=== PATIENT | male | born 1960 | race Caucasian/White ===

== ENCOUNTER → 2021-04-27 13:55 | Outpatient (BNVA) | payer BC, SELFPAY | PROVIDERS: Family Provider Family Medicine; PCP Family Medicine; Visit Provider Specialist | DX: R25.2 Cramp and spasm (principal); R53.83 Other fatigue; R20.0 Anesthesia of skin; R20.2 Paresthesia of skin; Z87.81 Personal history of (healed) traumatic fracture | CPT/HCPCS: 99204; 99205 ==

== ENCOUNTER 2021-04-27 16:22 | Outpatient (CLI) | payer BC, SELFPAY ==
[2021-04-27 17:20] LABS: Creatine Phosphokinase 96 U/L (39-308)
[2021-04-27 18:11] LABS: Erythrocyte Sedimentation Rate 11 mm/hr (0-10)
[2021-05-01 13:03] LABS: COMPLEMENT COMPONENT C3C 106 mg/dL (82-185); COMPLEMENT COMPONENT C4C 15 mg/dL (15-53); COMPLEMENT, TOTAL (CH50) 39 U/mL (31-60)
[2021-05-01 13:38] LABS: Cyclic Citrullinated Peptide <16 UNITS
[2021-05-01 15:53] LABS: CENTROMERE B ANTIBODY <1.0 NEG AI (<1.0 NEG); JO-1 ANTIBODY <1.0 NEG AI (<1.0 NEG); RNP ANTIBODY <1.0 NEG AI (<1.0 NEG); SCL-70 ANTIBODY <1.0 NEG AI (<1.0 NEG); SJOGREN'S ANTIBODY (SS-A) <1.0 NEG AI (<1.0 NEG); SM ANTIBODY <1.0 NEG AI (<1.0 NEG); SS-B <1.0 NEG AI (<1.0 NEG)
[2021-05-01 16:58] LABS: THYROID PEROXIDASE ANTIBODIES 1 IU/mL (<9)
[2021-05-03 08:38] LABS: ANA PATTERN Nuclear, Speckled; ANA SCREEN, IFA POSITIVE (NEGATIVE)
[2021-05-06 00:02] LABS: DNA AB (DS) CRITHIDIA,IFA NEGATIVE (NEGATIVE)
== END 2021-04-27 16:23 | disposition home or self-care (01) ==
PROVIDERS: PCP Family Medicine; Visit Provider Specialist
DX: R25.2 Cramp and spasm (principal); R20.0 Anesthesia of skin; R20.2 Paresthesia of skin
CPT/HCPCS: 36415; 82550; 85651; 86160; 86162; 86235; 86255; 86376; 86431

== ENCOUNTER 2021-05-25 11:45 | Outpatient (CLI) | payer BC, SELFPAY ==
--- NOTE | 2021-05-25 11:30 | MR_ITS ---
WS: [id number] MRI CERVICAL SPINE NONCONTRAST TECHNIQUE: Sagittal T1, T2 and STIR imaging. Axial T2, gradient, and fiesta imaging. CLINICAL INFORMATION: Z87.81 - Personal history of (healed) traumatic fracture COMPARISON: None. FINDINGS: Straightening with slight reversal normal cervical lordosis. Mild spondylitic changes. Cord signal is normal. C2-C3: Mild disc osteophytic ridging. Mild facet arthropathy. Spinal canal and foramen are patent. C3-C4: Mild disc osteophyte complex with endplate ridging. Mild to moderate central canal stenosis wi th slight indentation on the cervical cord. Severe left and mild to moderate right bony foraminal rg rowing. Mild facet arthropathy. C4-C5: Disc osteophyte complex with endplate ridging eccentric to the right. Moderate central canal s tenosis and slight indentation on cervical cord. Moderate to severe right and mild left bony foramina l narrowing. Mild facet arthropathy. C5-C6: Disc osteophyte complex eccentric to the left with a left pericentral protrusion. Indentation left ventral cervical cord with moderate central canal stenosis. Mild flattening of the cervical cord . Moderate to severe left and mild to moderate right bony foraminal narrowing. Moderate facet arthrop athy. C6-C7: Shallow central disc protrusion with mild central canal stenosis. Mild left and no significant right foraminal narrowing. Mild facet arthropathy. C7-T1: Normal. T2 hyperintense right thyroid nodule measuring 11 mm. Visualized brain stem structures: Normal. Prevertebral soft tissues: Normal. MR/MR cervical spin wo con* [id number] IMPRESSION: 1. Straightening with slight reversal of the normal cervical lordosis. Moderat e spondylitic changes. 2. Mild to moderate central canal stenosis C3-C4. Moderate central canal steno sis C4-C5 and C5-C6 with slight indentation on the cervical cord. 3. Left pericentral disc osteophyte protrusion C5-6 with slight indentation an d flattening of the cervical cord. Moderate central canal stenosis. 4. Moderate to severe bony foraminal narrowing worse at left C3-C4, right C4-5 , left C5-C6. 5. T2 hyperintense right thyroid nodule measuring 11 mm. This can be followed up with ultrasound on an elective basis.
== END 2021-05-25 11:46 | disposition home or self-care (01) ==
PROVIDERS: PCP Family Medicine; Visit Provider Specialist
DX: Z87.81 Personal history of (healed) traumatic fracture (principal); E04.1 Nontoxic single thyroid nodule; M25.78 Osteophyte, vertebrae; M48.02 Spinal stenosis, cervical region
CPT/HCPCS: 72141

== ENCOUNTER → 2021-05-29 14:42 | Outpatient (BNVA) | payer BC, SELFPAY | PROVIDERS: PCP Family Medicine; Visit Provider Specialist | DX: R25.2 Cramp and spasm (principal); M50.90 Cervical disc disorder, unspecified, unspecified cervical region; M48.02 Spinal stenosis, cervical region; G43.711 Chronic migraine without aura, intractable, with status migrainosus; M19.90 Unspecified osteoarthritis, unspecified site; R53.83 Other fatigue | CPT/HCPCS: 99215 ==

== ENCOUNTER → 2021-06-22 09:13 | Outpatient (BNVA) | payer BC, SELFPAY | PROVIDERS: PCP Family Medicine; Referring Provider Specialist; Visit Provider Orthopaedic Surgery | DX: R76.8 Other specified abnormal immunological findings in serum (principal); R53.83 Other fatigue; Z11.59 Encounter for screening for other viral diseases; R25.2 Cramp and spasm; M50.90 Cervical disc disorder, unspecified, unspecified cervical region; M48.02 Spinal stenosis, cervical region | CPT/HCPCS: 72050; 99204 ==

== ENCOUNTER → 2021-06-30 09:41 | Outpatient (BNVA) | payer BC, SELFPAY | PROVIDERS: PCP Nurse Practitioner; Referring Provider Orthopaedic Surgery; Visit Provider Anesthesiology Pain Medicine | DX: M54.2 Cervicalgia (principal); M79.603 Pain in arm, unspecified | CPT/HCPCS: 99204 ==

== ENCOUNTER 2021-07-07 12:02 | Outpatient (CLI) | payer BC, SELFPAY ==
--- NOTE | 2021-07-07 12:25 | XR_ITS ---
WS: [id number] Left hand, 2 views, 07/07/2021 Clinical Data: R53.83 - Other fatigue Comparison: None. Findings: No new fractures or dislocations are seen. The soft tissues are unremarkable. The joint spaces are no rmal There is deformity of the distal left ulna from an old injury. XR/XR hand LT 2V [id number] Impression: Negative left hand.
--- NOTE | 2021-07-07 12:25 | XR_ITS ---
WS: [id number] Sacroiliac joints, 3 views, 07/07/2021 Clinical Data: L40.9 - Psoriasis, unspecified Comparison: None. Findings: The SI joints are normal in width. No erosion, sclerosis or destruction is seen. There are no fractur es or dislocations. The adjacent visualized pelvis and hips are unremarkable. XR/XR sacroiliac jts m 3V [id number] Impression: Negative SI joints.
--- NOTE | 2021-07-07 12:25 | XR_ITS ---
WS: [id number] Left foot, 2 views, 07/07/2021 Clinical Data: M25.50 - Pain in unspecified joint Comparison: None. Findings: No fractures or dislocations are seen. No bone destruction or erosion is noted. There is minimal oste oarthritis of the left first MTP joint. 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
--- NOTE | 2021-07-07 12:25 | XR_ITS ---
WS: [id number] Right hand, 2 views, 07/07/2021 Clinical Data: R53.83 - Other fatigue Comparison: None. Findings: No fractures or dislocations are seen. The soft tissues are unremarkable. The joint space s are normal XR/XR hand RT 2V [id number] Impression: Negative right hand.
--- NOTE | 2021-07-07 12:25 | XR_ITS ---
WS: [email or web address] Right foot, 2 views, 07/07/2021 Clinical Data: M25.50 - Pain in unspecified joint Comparison: None. Findings: No fractures or dislocations are seen. No bone destruction or erosion is noted. The joint spaces and soft tissues are normal. There is a plantar spur. XR/XR foot RT 2V 15565 Impression: Negative right foot.
--- NOTE | 2021-07-07 12:25 | XR_ITS ---
WS: [email or web address] Lumbar spine, 3 views, 07/07/2021 Clinical Data: R53.83 - Other fatigue Comparison: Lateral lumbar spine, 06/22/2009 Findings: No compression fractures or subluxation is seen. Degenerative disc narrowing is seen at all levels of the lumbar spine. There is osteophyte formation at all lumbar vertebral bodies.. The transverse proc esses and SI joints are normal. XR/XR lumbar spine 2-3V* [id number] Impression: Multiple level osteophyte formation and degenerative disc narrowing.
[2021-07-07 13:52] LABS: Add Urine Microscopic? NO; Charge for UA Resulting for Rev
[2021-07-07 14:07] LABS: Bilirubin Urine Neg (Negative); Blood Urine Neg (Negative); Glucose Urine UA Norm (Normal); Ketones Urine Negative (Negative); Nitrate Urine Negative (Negative); Protein Urine Neg (Negative); Specific Gravity, Urine 1.015 (1.005-1.030); Urine Appearance Clear (CLEAR); Urine Color Yellow (Yellow); Urobilinogen Urine Norm (Negative); pH Urine 7 (5-7)
[2021-07-07 14:08] LABS: Leukocyte Esterase Urine Negative (Negative)
[2021-07-07 14:24] LABS: Ferritin 224 ng/mL (30-400); Iron 77 ug/dL (59-158)
[2021-07-07 14:31] LABS: Creatine Phosphokinase 136 U/L (39-308); Magnesium 2.2 mg/dL (1.7-2.3); Testosterone Total 329.3 ng/dL (193-740); Thyroid Stimulating Hormone 0.82 uIU/mL (0.27-4.20)
[2021-07-07 14:36] LABS: Cortisol Random 9.77 ug/dL (2.47-19.5); Hepatitis B Core AB, Total Non-Reactive (Nonreactive); Hepatitis B Surface Antigen Non-Reactive (Nonreactive); Hepatitis C Virus Antibody Non-Reactive (Nonreactive)
[2021-07-07 14:51] LABS: 25 Hydroxy Vitamin D 50 ng/mL (30-100); Vitamin B12 776 pg/mL (232-1245)
[2021-07-10 11:04] LABS: Erythrocyte Sedimentation Rate 2 mm/hr (0-10)
[2021-07-10 12:46] LABS: Lymes IGG WB <0.90 index
[2021-07-10 16:03] LABS: Cyclic Citrullinated Peptide <16 UNITS
[2021-07-12 12:38] LABS: Adrenocorticotropic Hormone 13 pg/mL (6-50)
[2021-07-14 01:18] LABS: Immunoglobulin A 193 mg/dL (47-310)
[2021-07-16 02:48] LABS: Gliadin Ab.IgA <1.0 U/mL; Gliadin Ab.IgG <1.0 U/mL; Tissue Transglutaminase IgA Ab <1.0 U/mL; Tissue transglutaminase Ab.IgG <1.0 U/mL
== END 2021-07-07 12:03 | disposition home or self-care (01) ==
PROVIDERS: PCP Nurse Practitioner; Visit Provider Internal Medicine
DX: R53.83 Other fatigue (principal); M25.50 Pain in unspecified joint; L40.9 Psoriasis, unspecified; D86.9 Sarcoidosis, unspecified; Z51.81 Encounter for therapeutic drug level monitoring; Z11.59 Encounter for screening for other viral diseases
CPT/HCPCS: 72100; 72202; 73120; 73620; 81003; 82024; 82306; 82533; 82550; 82607; 82728; 82784; 83516; 83540; 83735; 84100; 84403; 84439; 84443; 85651; 86200; 86431; 86617; 86704; 86803; 87340

== ENCOUNTER 2021-08-03 06:00 | Outpatient (RCR) | payer BC, SELFPAY | END 2021-08-13 23:59 | disposition home or self-care (01) | LOC: MPT 06:00 | PROVIDERS: PCP Nurse Practitioner; Referring Provider Orthopaedic Surgery; Visit Provider Orthopaedic Surgery | DX: G89.29 Other chronic pain (principal); M48.02 Spinal stenosis, cervical region | CPT/HCPCS: 97140; 97161 ==

== ENCOUNTER 2021-08-14 06:00 | Outpatient (RCR) | payer BC, SELFPAY | END 2021-09-12 23:59 | disposition home or self-care (01) | LOC: MPT 06:00 | PROVIDERS: PCP Nurse Practitioner; Referring Provider Orthopaedic Surgery; Visit Provider Orthopaedic Surgery | DX: M48.02 Spinal stenosis, cervical region (principal); M54.2 Cervicalgia | CPT/HCPCS: 97110 ==

== ENCOUNTER 2021-11-09 14:40 | Outpatient (CLI) | payer BC, SELFPAY ==
--- NOTE | 2021-11-09 15:22 | XRR_ITS ---
PROCEDURE INFORMATION: Exam: XR Chest Exam date and time: 11/09/2021 3:22 PM Age: 61 years old Clinical indication: Patient HX: Cough x 2 weeks; Additional info: Acute cough TECHNIQUE: Imaging protocol: XR of the chest. Views: 2 views. COMPARISON: CR XR cervical spine 4-5V [id number] 06/22/2021 9:21 AM FINDINGS: Lungs: Unremarkable. No consolidation. Pleural spaces: Unremarkable. No pleural effusion. No pneumothorax. Heart/Mediastinum: Unremarkable. No cardiomegaly. Bones/joints: Unremarkable. XR/XR chest 2V* [id number] IMPRESSION: No acute findings.
== END 2021-11-09 14:41 | disposition home or self-care (01) ==
LOC: RAD 15:06
PROVIDERS: PCP Nurse Practitioner; Visit Provider Family Medicine
DX: R05.9 Cough, unspecified (principal)
CPT/HCPCS: 71046

== ENCOUNTER 2023-06-26 10:17 | Outpatient (CLI) | payer BC, SELFPAY ==
--- NOTE | 2023-06-26 10:35 | XR_ITS ---
WS: [email or web address] Exam: XR chest 2V* [id number] Date/Time of Exam: 06/26/2023 10:57 AM Reason For Exam: SHORTNESS OF BREATH Comparison 11/09/2021. There is a 1 cm soft tissue nodule visualized over the RIGHT lower lung zone. Remaining lung madera a re clear. No pneumothorax. Normal cardiomediastinal silhouette and regional bony elements. IMPRESSION: 1. New 1 cm soft tissue nodule projected over the RIGHT lower lung zone. This may be a nipple shadow or a new pulmonary nodule. The chest is otherwise negative. Recommendations: Repeat chest radiograph with metallic nipple markers in place for further work-up.
[2023-06-28 14:29] LABS: Quantiferon Mitogen >10.00 IU/mL; Quantiferon Nil 0.05 IU/mL; Quantiferon Plus TB1 0.01 IU/mL; Quantiferon Plus TB2 0.01 IU/mL; Quantiferon TB Gold NEGATIVE (NEGATIVE)
== END 2023-06-26 10:18 | disposition home or self-care (01) ==
PROVIDERS: PCP Nurse Practitioner; Visit Provider Nurse Practitioner Family
DX: R06.02 Shortness of breath (principal); Z20.1 Contact with and (suspected) exposure to tuberculosis; R91.8 Other nonspecific abnormal finding of lung field
CPT/HCPCS: 71046; 86480

== ENCOUNTER 2023-06-27 11:07 | Outpatient (CLI) | payer BC, SELFPAY ==
--- NOTE | 2023-06-27 11:19 | XR_ITS ---
WS: [email or web address] Exam: XR chest 2V* [id number] Date/Time of Exam: 06/27/2023 11:22 AM Reason For Exam: COUGH/SHORTNESS OF BREATH/COUGH/SOLITARY PULMONARY NODULE Repeat chest x-ray with nipple markers in place is performed. The previously described 1 cm soft tissue nodule in the RIGHT lung base appears to represent a lung n odule and not a nipple shadow. Heart size is normal. The mediastinum and bony thorax are unremarkable . No pleural effusions. IMPRESSION: 1. Previously described soft tissue nodule in the RIGHT lower lung zone appears to represent a pulmon nanda nodule not a nipple shadow. This nodule is new since chest x-ray of 11/09/2021. Pulmonary malignan cy not excluded. Remaining aspects of the chest are normal. Recommendations: Contrast CT scanning of the chest recommended for follow-up.
== END 2023-06-27 11:08 | disposition home or self-care (01) ==
PROVIDERS: PCP Nurse Practitioner; Visit Provider Nurse Practitioner Family
DX: R05.9 Cough, unspecified (principal); R06.02 Shortness of breath; R91.1 Solitary pulmonary nodule
CPT/HCPCS: 71046

== ENCOUNTER 2023-07-30 13:35 | Emergency (ER) | payer BC, SELFPAY ==
[2023-07-30 13:35] VITALS: BP 140/104; PULSE 103; RESP 20; TEMP 36.8; O2SAT 94; BMI 27.8
--- NOTE | 2023-07-30 13:39 | CTR_ITS ---
PROCEDURE INFORMATION: Exam: CT Abdomen And Pelvis Without Contrast Exam date and time: 07/30/2023 2:52 PM Age: 63 years old Clinical indication: Abdominal pain; Flank; Left; Additional info: Abd pain TECHNIQUE: Imaging protocol: Computed tomography of the abdomen and pelvis without contrast. Radiation optimization: All CT scans at this facility use at least one of these dose optimization techniques: automated exposure control; mA and/or kV adjustment per patient size (includes targeted exams where dose is matched to clinical indication); or iterative reconstruction. REPORTING DATA: Count of CT and Cardiac NM exams in prior 12 months: This patient has received 0 known CTs and 0 known cardiac nuclear medicine studies in the 12 months prior to the current study. COMPARISON: CR XR sacroiliac jts m 3V [id number] 07/07/2021 1:05 PM RADIATION DOSE METRICS: Total DLP (mGy-cm): 805 FINDINGS: Lungs: No significant infiltrate or effusion is seen within the visualized lung bases. Diaphragm: Small hiatal hernia. Liver: Fatty infiltration of the liver without focal abnormality. Gallbladder and bile ducts: Normal. No calcified stones. No ductal dilation. Pancreas: Normal. No ductal dilation. Spleen: Normal. No splenomegaly. Adrenal glands: Normal. No mass. Kidneys and ureters: A 5 mm distal left ureteral calculus is seen at the UVJ with secondary moderate to severe obstructive uropathy on the left. Enlarged or edematous left kidney is suggested. Perinephric and periureteral stranding is seen on the left. Note is made of a small nonobstructing left renal calculus at the midpole. Right kidney appears unremarkable for unenhanced exam. Stomach and bowel: Unremarkable. No obstruction. No mucosal thickening. Moderate stool in the proximal colon. Appendix: No evidence of appendicitis. Intraperitoneal space: Unremarkable. No free air. No significant fluid collection. Vasculature: Unremarkable. No abdominal aortic aneurysm. Lymph nodes: Unremarkable. No enlarged lymph nodes. Urinary bladder: Unremarkable as visualized. Reproductive: A few small prostate calcifications are seen. Bones/joints: Degenerative change of the lumbar spine. Soft tissues: Very small umbilical hernia of fat. CT/CT kidney stone [id number] IMPRESSION: 1. 5 mm distal left ureteral calculus at the UVJ with secondary moderate to severe obstructive uropathy on the left with associated edematous or enlarged left kidney along with perinephric and periureteral stranding. 2. A small nonobstructing left renal calculus at the midpole also noted. 3. Fatty liver. 4. Small hiatal hernia. Very small umbilical hernia of fat.
--- NOTE | 2023-07-30 13:41 | ED_ITS ---
HPI - Abdominal Pain General: Chief Complaint: Abdominal Pain Stated Complaint: Abd Pain Time Seen by Provider: 07/30/23 13:36 History of Present Illness: 63-year-old male presents emerged part with complaints of abdominal pain that started at approximately 8 AM this morning. He states that initially started in the suprapubic region and was a 9 out of 10 sharp and cramping intermittently. He states that approximately 2 hours ago it became much more intense and generalized to his entire abdomen. He states he was also unable to have a normal bowel movement or urination this morning. He does have several episodes of associated nausea and vomiting. He states the pain is now constant over his generalized abdomen. He states he has not had any previous medical surgeries to his abdomen, he denies known injury or trauma. Patient states that he originally received 100 mcg of fentanyl in the ambulance and it did relieve his pain from and he states now it is a 5 out of 10 whereas initially it was a 9 out of 10. He also states that he feels like the pain is not going around to his left lower abdominal area. He states that he has been diagnosed with a ventral hernia in the past and this morning when he was retching that he feels like he may have torn something. Associated Symptoms: Reports nausea and vomiting Review of Systems General: Reports: 10 or more systems reviewed and unremarkable except in HPI and below GI: Reports: abdominal pain, nausea and vomiting : Reports: difficulty starting urination PFSH ED PFSH: Family History Family/Other Lupus Cancer Maternal Aunt Rheumatoid arthritis Maternal Aunt Father Cancer Prostate Denies family history of Diabetes Hyperlipidemia Hypertension Stroke Social History Smoking and tobacco/nicotine status: never used tobacco/nicotine Alcohol intake: never Physical Exam Const: COMMON NORMALS: patient oriented x3, healthy appearing and alert HENMT: COMMON NORMALS: normocephalic, atraumatic and Normal nasal mucous membranes and turbinates present HEAD & SCALP: normocephalic and atraumatic NOSE: Normal nasal mucous membranes and turbinates present Eye: COMMON NORMALS: Equal, round and reactive pupils present and EOMs intact bilaterally PUPIL: Yes Equal, round and reactive pupils present Neck/C-Spine: COMMON NORMALS: full ROM, no lymphadenopathy, supple and no meningeal signs Chest: COMMONS NORMALS: normal inspection of the chest and normal palpation of entire chest wall Resp: COMMON NORMALS: normal respiratory effort, No retractions, No use of accessory muscles and clear to auscultation bilaterally AUSCULTATION: clear to auscultation bilaterally Cardio: COMMON NORMALS: regular rate, regular rhythm, S1 normal heart sound present, S2 normal heart sound present and Peripheral pulses 2+ throughout RATE: regular rate RHYTHM: regular rhythm HEART SOUNDS: S1 normal heart sound present and S2 normal heart sound present PERIPHERAL PULSES: Peripheral pulses 2+ throughout GI: COMMON NORMALS: Soft to palpation INSPECTION: Yes normal to inspection AUSCULTATION: Yes Hypoactive bowel sounds present PALPATION: Yes Soft to palpation and Yes Tenderness to palpation present (GI) Details: LLQ, RLQ, LUQ and RUQ : COMMON NORMALS: Yes no CVA tenderness (Left CVA tenderness) BLADDER/KIDNEY EXAM: Yes no CVA tenderness (Left CVA tenderness) Back/Pelvis: COMMON NORMALS: no CVA tenderness (Left CVA tenderness), thoracic and lumbar spine normal to inspection, no thoracic nor lumbar tenderness and thoraco-lumbar ROM normal Extremity: COMMON NORMALS: normal to inspection, full ROM and capillary refill normal Neuro: COMMON NORMALS: patient oriented x3 and moves all extremities SENSORIUM/ORIENTATION: Yes alert MENINGEAL SIGNS: Yes no meningeal signs Course Vital Signs: Vital signs: Vital Signs Temperature 98.2 F 07/30/23 13:35 Pulse Rate 91 07/30/23 15:45 Respiratory Rate 16 07/30/23 15:45 Blood Pressure 142/110 07/30/23 15:45 Pulse Oximetry 99 07/30/23 15:45 Oxygen Delivery Me thod Room Air 07/30/23 15:09 MDM - Abdominal Pain Medical Decision Making Physical exam completed and documented, I will order a CBC, CMP as well as a lipase to evaluate the patient's electrolyte and infectious status. I also will obtain a lipase given his abdominal pain. Given his presenting age and vague sudden onset of symptoms I will also obtain EKG to rule out cardiac causes of his acute abdominal pain. We will also obtain a CT of his abdomen and pelvis without to rule out renal calculi. I will provide him pain medication as well as nausea medication and IV fluid rehydration. Differential Diagnosis Likely calculus of kidney Medical Records I reviewed the patient's medical records. Lab Data I reviewed the patient's lab results. 07/30/23 13:45 07/30/23 13:45 Labs/Radiology: Radiology Impressions Abdomen/Pelvis CT 07/30/23 13:39 IMPRESSION: 1. 5 mm distal left ureteral calculus at the UVJ with secondary moderate to severe obstructive uropathy on the left with associated edematous or enlarged left kidney along with perinephric and periureteral stranding. 2. A small nonobstructing left renal calculus at the midpole also noted. 3. Fatty liver. 4. Small hiatal hernia. Very small umbilical hernia of fat. Laboratory Results WBC 9.20 10^3/uL (3.29-11.43) 07/30/23 13:45 RBC 4.41 10^6/uL (3.85-5.65) 07/30/23 13:45 Hgb 13.40 g/dL (11.27-16.99) 07/30/23 13:45 Hct 40.3 % (37-53) 07/30/23 13:45 MCV 91.4 fl (82-101) 07/30/23 13:45 MCH 30.4 pg (27-33) 07/30/23 13:45 MCHC 33.3 g/dL (30-55) 07/30/23 13:45 RDW 12.9 % (12.1-15.1) 07/30/23 13:45 Plt Count 190 10^3/cmm (157-399) 07/30/23 13:45 MPV 9.9 fL (7.4-10.4) 07/30/23 13:45 Neut % (Auto) 83.3 % 07/30/23 13:45 Lymph % (Auto) 9.2 % 07/30/23 13:45 Morrison % (Auto) 5.3 % 07/30/23 13:45 Eos % (Auto) 1.0 % 07/30/23 13:45 Baso % (Auto) 0.9 % 07/30/23 13:45 Neut # (Auto) 7.66 10^3/uL (1.8-7.7) 07/30/23 13:45 Lymph # (Auto) 0.9 10^3/uL (0.8-4.8) 07/30/23 13:45 Morrison # (Auto) 0.5 10^3/uL (0.2-0.9) 07/30/23 13:45 Eos # (Auto) 0.1 10^3/uL (0.0-0.8) 07/30/23 13:45 Baso # (Auto) 0.1 10^3/uL (0.0-0.1) 07/30/23 13:45 Nucleated RBC % (auto) 0 % 07/30/23 13:45 Nucleated RBCs # 0.0 /100WBC 07/30/23 13:45 Sodium 137 mmol/L (136-145) 07/30/23 13:45 Potassium 4.4 mmol/L (3.5-5.1) 07/30/23 13:45 Chloride 102 mmol/L (98-107) 07/30/23 13:45 Carbon Dioxide 23 mmol/L (22-29) 07/30/23 13:45 Anion Gap 16.4 (5-19) 07/30/23 13:45 BUN 17 mg/dL (8-23) 07/30/23 13:45 Creatinine 1.7 mg/dL (0.7-1.2) H 07/30/23 13:45 GFR Calculation 41.2 mL/min (90-130) L 07/30/23 13:45 Glucose 138 mg/dL (65-115) H 07/30/23 13:45 Calculated Osmolality 288 mOsm/kg (285-295) 07/30/23 13:45 Calcium 9.2 mg/dL (8.5-10.5) 07/30/23 13:45 Total Bilirubin 0.5 mg/dL (0.15-1.2) 07/30/23 13:45 AST 30 U/L (0-40) 07/30/23 13:45 ALT 40 U/L (0-41) 07/30/23 13:45 Alkaline Phosphatase 80 U/L (40-130) 07/30/23 13:45 Troponin T Baseline 7 ng/L (0-15) 07/30/23 13:45 Total Protein 6.8 g/dL (6.6-8.7) 07/30/23 13:45 Albumin 4.5 g/dL (3.5-5.2) 07/30/23 13:45 Globulin 2.3 g/dL (1.3-4.6) 07/30/23 13:45 Lipase 25 U/L (13-60) 07/30/23 13:45 XR interpretation done by ED provider, pending radiology final review ED provider radiology interpretation(s): Left renal calculi Discharge Plan Discharge Patient Disposition: Home Clinical Impression: Left nephrolithiasis, Abdominal wall pain in left flank Condition: Stable Prescriptions: New Flomax 0.4 mg capsule 0.4 mg PO DAILY Qty: 30 0RF hydrocodone-acetaminophen 5-325 mg tablet 1 tab PO Q6H Qty: 20 0RF No Action gabapentin 300 mg capsule 300 mg PO TID Qty: 90 0RF montelukast [Singulair] 10 mg tablet 10 mg PO DAILY omeprazole 20 mg capsule,delayed release(DR/EC) 20 mg PO DAILY metoprolol tartrate PO Zyrtec 10 mg capsule 10 mg PO DAILY PRN (Reason: Allergic Symptoms) doxycycline hyclate 50 mg capsule 50 mg PO DAILY topiramate [Topamax] 100 mg tablet 100 mg PO DAILY Qty: 30 5RF Discharge Orders: Discharge ED (Routine); Ordered 07/30/23 Ordered By: Timbo Moura Referrals: Katia Gaytan NP [Primary Care Provider] - Discharge Diet: Advance as tolerated Discharge Activity: Resume usual activity Patient Instructions: Opioid Safety Coding Level of Care Code ED Applied Psychology Professor for Toño Espinosa
--- NOTE | 2023-07-30 13:41 | ECG_ITS ---
[facility] Test Date: 2023-07-30 Pat Name: Owen Mcduffie Department: Room: Gender: Male Insecticide Sprayer: : 1960 Requested By: Timbo Moura Order Number: [id number] Miranda MD: Damaris Henriquez M.D. Measurements Intervals [place] Rate: 87 P: 47 KS: 146 QRS: 3 QRSD: 93 T: 11 QT: 355 QTc: 428 Interpretive Statements SINUS RHYTHM No previous ECG available for comparison Electronically Signed On 07-30-2023 15:23:30 CDT by Damaris Henriquez M.D. [id number]
[2023-07-30] MEDS: sodium chloride 0.9% 1,000 ML 999 ML IV (13:50)
[2023-07-30] MEDS: morphine 4 mg/mL SDV 1 mL IVP (13:50)
[2023-07-30 13:53] LABS: Basophils # 0.1 10^3/uL (0.0-0.1); Basophils % 0.9 %; Eosinophils # 0.1 10^3/uL (0.0-0.8); Hematocrit 40.3 % (37-53); Lymphocytes # 0.9 10^3/uL (0.8-4.8); Lymphocytes % 9.2 %; Mean Corpuscular HGB Conc 33.3 g/dL (30-55); Mean Corpuscular Hemoglobin 30.4 pg (27-33); Mean Corpuscular Volume 91.4 fl (82-101); Mean Platelet Volume 9.9 fL (7.4-10.4); Monocytes # 0.5 10^3/uL (0.2-0.9); Monocytes % 5.3 %; Neutrophils # 7.66 10^3/uL (1.8-7.7); Neutrophils % 83.3 %; Nucleated Red Blood Cells % 0 %; Platelet Count 190 10^3/cmm (157-399); Red Blood Count 4.41 10^6/uL (3.85-5.65); Red Cell Distribution Width 12.9 % (12.1-15.1)
[2023-07-30 14:04] VITALS: BP 140/104; PULSE 91; RESP 16; O2SAT 100
[2023-07-30 14:14] LABS: Troponin(5th) Baseline 7 ng/L (0-15)
[2023-07-30 14:28] LABS: Alanine Aminotransferase 40 U/L (0-41); Albumin Level 4.5 g/dL (3.5-5.2); Alkaline Phosphatase 80 U/L (40-130); Anion Gap 16.4 (5-19); Aspartate Amino Transferase 30 U/L (0-40); Blood Urea Nitrogen 17 mg/dL (8-23); Calcium 9.2 mg/dL (8.5-10.5); Carbon Dioxide 23 mmol/L (22-29); Chloride 102 mmol/L (98-107); Globulin 2.3 g/dL (1.3-4.6); Glomerular Filtration Rate 41.2 mL/min (90-130); Glucose 138 mg/dL (65-115); Lipase 25 U/L (13-60); Osmolality Calculated 288 mOsm/kg (285-295); Potassium 4.4 mmol/L (3.5-5.1); Sodium 137 mmol/L (136-145); Total Bilirubin 0.5 mg/dL (0.15-1.2); Total Protein 6.8 g/dL (6.6-8.7)
[2023-07-30] MEDS: ketorolac 30 mg/mL INJ IVP (15:00)
[2023-07-30 15:09] VITALS: O2SAT 100
--- NOTE | 2023-07-30 15:18 | PC.PHAR ---
UNABLE TO FINISH MED REC DUE TO NEW RX IS ON CHART FOR TODAY
[2023-07-30] MEDS: tamsulosin 0.4 mg Capsule PO (15:21)
[2023-07-30 15:45] VITALS: BP 142/110; PULSE 91; RESP 16; O2SAT 99
== END 2023-07-30 15:56 | disposition home or self-care (01) ==
PROVIDERS: Emergency Provider Internal Medicine; PCP Nurse Practitioner Family
DX: N20.0 Calculus of kidney (principal)
CPT/HCPCS: 36415; 74176; 80053; 83690; 84484; 85025; 93005; 96361; 96374; 96375; 99285; J1885; J2270; J7030

== ENCOUNTER 2023-09-12 09:15 | Outpatient (CLI) | payer BC, SELFPAY | END 2023-09-12 09:16 | disposition home or self-care (01) | LOC: RT 09:18 | PROVIDERS: PCP Family Medicine; Visit Provider Family Medicine | DX: R05.3 Chronic cough (principal) | CPT/HCPCS: 94010 ==

== ENCOUNTER 2024-08-04 09:29 | Outpatient (CLI) | payer BC, SELFPAY ==
--- NOTE | 2024-08-04 09:35 | CT_ITS ---
WS: [id number] CT SINUSES TECHNIQUE: Noncontrast CT of the paranasal sinuses with coronal and sagittal reformatted images. CLINICAL INFORMATION: ACUTE SEROUS OTITIS MEDIA, RIGHT EAR COMPARISON: 2006 DLP: 354.[address] scans at [facility] use at least one of these dose optimization techniques: automated e xposure control; mA and/or kV adjustment per patient size (includes targeted exams where dose is matc hed to clinical indication); or iterative reconstruction. FINDINGS: Minimal nasal septal deviation measuring 2 mm. Small nasal septal spurs. Mild narrowing ostiomeatal u nits bilaterally with mild mucosal thickening. Small retention cysts or polyps in the maxillary sinus es largest on the LEFT measuring 1.9 x 0.9 cm. Frontal sinuses are well aerated. Trace mucosal thicke tarun of the ethmoid air cells. Frontal sinuses are well aerated. Sphenoid sinuses are well aerated. M astoid air cells are well aerated. Normal posterior nasopharynx. Normal parapharyngeal fat. Moderate degenerative changes LEFT mandibular condyle. CT/CT sinus wo con* [id number] IMPRESSION: 1. Minimal nasal septal deviation measuring 2 mm with small nasal spurs. 2. Mild narrowing of the ostiomeatal units bilaterally with mild mucosal thick ening. 3. Small retention cyst or polyps in the maxillary sinuses the largest on the LEFT measuring 1.9 x 0.9 cm. 4. Trace mucosal thickening in the ethmoid air cells. 5. Mastoid air cells are well aerated.
== END 2024-08-04 09:30 | disposition home or self-care (01) ==
LOC: RAD 09:30
PROVIDERS: PCP Family Medicine; Visit Provider Specialist
DX: H65.01 Acute serous otitis media, right ear (principal); J34.2 Deviated nasal septum; J34.1 Cyst and mucocele of nose and nasal sinus
CPT/HCPCS: 70486